=== PATIENT | female | born 1955 | race Caucasian/White ===

== ENCOUNTER → 2024-09-01 11:23 | Outpatient (REF) | payer MEDICARE, OTHER, SELFPAY | LOC: RAD 11:23 | PROVIDERS: ATTENDING PHYSICIAN Family Medicine | DX: M81.0 Age-related osteoporosis without current pathological fracture (principal) | CPT/HCPCS: 77080 ==

== ENCOUNTER 2024-10-06 06:15 | Day surgery (SDC) | payer MEDICARE, OTHER, SELFPAY | END 2024-10-06 11:07 | disposition home or self-care (01) | LOC: GI 06:15 | PROVIDERS: ATTENDING PHYSICIAN Internal Medicine Gastroenterology; FAMILY PHYSICIAN Family Medicine | DX: Z12.11 Encounter for screening for malignant neoplasm of colon (principal); K63.89 Other specified diseases of intestine; K57.30 Diverticulosis of large intestine without perforation or abscess without bleeding; R12 Heartburn; K44.9 Diaphragmatic hernia without obstruction or gangrene; Q39.9 Congenital malformation of esophagus, unspecified; K31.7 Polyp of stomach and duodenum; K21.00 Gastro-esophageal reflux disease with esophagitis, without bleeding | CPT/HCPCS: 43239; G0121; 88305 ==

== ENCOUNTER → 2025-02-20 13:49 | Outpatient (REF) | payer MEDICARE, OTHER, SELFPAY | LOC: RCS 13:49 | PROVIDERS: ATTENDING PHYSICIAN Family Medicine | DX: R60.9 Edema, unspecified (principal) | CPT/HCPCS: 93306 ==

== ENCOUNTER → 2025-02-27 14:50 | Outpatient (REF) | payer MEDICARE, OTHER, SELFPAY | LOC: RAD 14:50 | PROVIDERS: ATTENDING PHYSICIAN Family Medicine | DX: R60.9 Edema, unspecified (principal) | CPT/HCPCS: 76604 ==

== ENCOUNTER → 2025-03-26 07:10 | Outpatient (REF) | payer MEDICARE, OTHER, SELFPAY | LOC: HWRCS 07:10 | PROVIDERS: ATTENDING PHYSICIAN Internal Medicine Cardiovascular Disease; FAMILY PHYSICIAN Family Medicine | DX: I10 Essential (primary) hypertension (principal); R06.09 Other forms of dyspnea | CPT/HCPCS: 78452; 93017; A9500; J2785 ==

== ENCOUNTER 2025-05-12 15:51 | Emergency (ER) | payer MEDICARE, OTHER, SELFPAY ==
[2025-05-12 15:53] VITALS: BP 193/100
[2025-05-12 16:09] VITALS: BP 182/91
--- NOTE | 2025-05-12 16:27 | ED.GENMED ---
History of Present Illness
General
Chief Complaint: Blood Pressure Problem
Time Seen by Provider: 05/12/25 16:26
History of Present Illness
History of Present Illness:
FOCUSED PAST MEDICAL HISTORY
- MS, high blood pressure
REVIEW OF OLD RECORDS
- The patient had a screening colonoscopy in 2024 and had an endoscopy in 2021
Note:
CHIEF COMPLAINT(S)
Uncontrolled hypertension with fluctuating blood pressure readings.
HISTORY OF PRESENT ILLNESS
The patient is a 69-year-old female with known hypertension, presenting with complaints of fluctuating blood pressure. The patient reports onset in January when she experienced swollen ankles and dyspnea on exertion, specifically when climbing stairs.
An echocardiogram and a chest ultrasound conducted by her primary care physician were reported as normal. In February, the patient saw a electric utility lineworker who attributed her ankle swelling to amlodipine and adjusted her medication regimen. Since the
medication change, the patient has experienced episodes of elevated blood pressure, with one notable episode of 193 mmHg, accompanied by dizziness. Recently, her blood pressure peaked at 220 mmHg during a follow-up visit with her electric utility lineworker,
although it later normalized without intervention.
The patient has a history of multiple blood pressure medications adjustments, initially using 6.25 mg of carvedilol twice daily, which was later increased to 12.5 mg. Other medications trialed include Valsartan and amlodipine. The patient did not
respond well to Valsartan when combined with a diuretic, experiencing hypotensive episodes. The current regimen includes carvedilol 12.5 mg and recently reintroduced amlodipine 2.5 mg, which has resulted in variable blood pressure readings ranging
from 152/74 mmHg to 180/87 mmHg. The patient reports feeling 'fine' with the current medication and denies chest pain but occasionally experiences lightheadedness and headaches, which she describes as similar to her multiple sclerosis-related
headaches.
PAST MEDICAL AND SURIGICAL HISTORY
Significant for hypertension and mild multiple sclerosis.
CHRONIC MEDICAL CONDITIONS SIGNIFICANTLY AFFECTING CARE
- Hypertension
- Mild Multiple Sclerosis
MEDICATIONS
- Carvedilol 12.5 mg twice daily
- Amlodipine 2.5 mg started last night
REVIEW OF SYSTEMS
- Cardiovascular: Reports fluctuating blood pressure; denies chest pain.
- Respiratory: Reports dyspnea on exertion when climbing stairs.
- Neurological: Reports occasional headaches similar in nature to multiple sclerosis-related headaches.
- General: Reports feeling fine currently but has experienced episodes of dizziness.
PHYSICAL EXAM
General: Alert, no acute distress. Systolic blood pressures around 190 on 2 readings in the ER. Heart rate is 67.
Skin: Warm, dry.
Head: Normocephalic, atraumatic.
Neck: Supple, trachea midline.
Eye Ears, nose, mouth and throat: Oral mucosa moist.
Cardiovascular: Normal peripheral perfusion, no edema. Normal rate.
Respiratory: Respirations are non-labored.
Gastrointestinal: Abdomen nondistended
Back: Normal range of motion, normal alignment.
Musculoskeletal: Normal range of motion, normal strength.
Neurological: Alert and oriented to person, place, time, and situation, no focal neurological deficit observed.
Psychiatric: Cooperative, appropriate mood & affect.
PLAN
- Resume Valsartan 80 mg as previously discussed with the patients electric utility lineworker, holding off on the use of amlodipine due to prior swelling issues.
- Patient advised to monitor blood pressure at home, particularly if readings exceed 180/90 mmHg.
- Recommend follow-up call to Dr. Jacinto to discuss ongoing management and suitability of recommencing Valsartan.
- Reassess in the ER if significant symptoms develop or if instructed by her electric utility lineworker.
DIFFERENTIAL DIAGNOSIS
The Differential Diagnosis includes, in no particular order and is not limited to:
- Primary hypertension
- Secondary hypertension due to renal artery stenosis
- Hypertensive heart disease
- Autonomic dysfunction related to multiple sclerosis
- Medication-induced blood pressure fluctuations
- Pheochromocytoma
- Hyperthyroidism
- Adrenal gland disorders
- Congestive heart failure
- Aortic coarctation
EKG
- Sinus 71, normal axis, no acute ST abnormality
LABS
- I reviewed recent labs from [place] which shows normal renal function
UPDATE
-SUMMARY OF ENCOUNTER
The patient, a 69-year-old female with a history of hypertension and mild multiple sclerosis, was seen in the emergency department primarily for uncontrolled hypertension. She reports experiencing fluctuating blood pressure readings with a peak
reading during her last electric utility lineworker visit. The patient has a history of medication adjustments for managing hypertension, including the use of carvedilol and amlodipine, with recent issues of dizziness and swelling attributed to previous amlodipine
use. A decision was made to resume Valsartan at 80 mg as previously discussed with her electric utility lineworker, while avoiding the concurrent use of diuretics due to previous adverse effects.
DISPOSITION
Discharge
ASSESSMENT
Uncontrolled hypertension with fluctuating readings likely due to previous medication regimen and inconsistent management.
PLAN
- Begin Valsartan 80 mg without concurrent diuretic use.
- Continue monitoring blood pressure at home.
- Follow up with primary care physician or electric utility lineworker to assess response to medication adjustment and ensure stable blood pressure management.
- Reassess in the emergency department if significant symptoms develop or as advised by her electric utility lineworker.
MEDICATION RECONCILIATION
- Resume Valsartan 80 mg as per previous cardiologists input.
MEDICAL DECISION MAKING
- Number and Complexity of Problems Addressed: Chronic conditions affecting care include hypertension and mild multiple sclerosis.
- Data:
- Category 1: Reviewed recent non-emergency department records, which include past medication adjustments and symptoms referenced.
- Category 3: Discussed management with the patients family concerning medication adjustments and potential side effects of previously trialed medications.
- Risk: Prescription drug management was conducted in adjusting and continuing Valsartan to minimize blood pressure fluctuations and manage symptoms. Consideration of admission/observation was deemed unnecessary as the patient was stable for
outpatient management after detailed evaluation, with an understanding on follow-up and self-monitoring.
DIAGNOSIS
- Hypertension, unspecified (I10)
- History of medication-induced side effects (secondary diagnosis due to previous amlodipine use)
Phy Exam
Physical Exam
Physical Exam:
See HPI
Course
Orders/Labs/Results
Orders:
Orders
05/12/25 15:56
EKG [Electrocardiogram (*1)] Urgent
Reason for Study: Hypertension, Benign
EKG- Treatment ONCE
Vital Signs
Initial and Last Documented VS:
Initial Vital Signs
Temp Pulse Resp BP Pulse Ox
36.7 C 91 17 193/100 97
05/12/25 15:53 05/12/25 15:53 05/12/25 15:53 05/12/25 15:53 05/12/25 15:53
Last Documented Vital Signs
Temp Pulse Resp BP Pulse Ox
36.7 C 91 17 193/100 97
05/12/25 15:53 05/12/25 15:53 05/12/25 15:53 05/12/25 15:53 05/12/25 16:27
*Pulse Oximetry
SaO2: 97
Oxygen Mode of Delivery: Room air
Patient hypoxic: no
*Critical Care Note
Total Time (30-74mins, 75-104mins- exclusive of procedures): Not Applicable
ED Attending Note
-
Portions of this chart may have been created with voice recognition software.� Occasional wrong word or��sound alike� substitutions may have occurred due to the inherent limitations of voice recognition software.
Discharge Plan
Departure
Patient Disposition: Home (Routine Discharge)
Date of Disposition: 05/12/25
Time of Disposition: 16:59
Patient with high blood pressure during this ER visit?: Yes
Discharge Problem:
Poor high blood pressure control
Instructions: High Blood Pressure (DC), BLOOD PRESSURE
Referrals:
Benny Love MD [Family Provider, Family Practice]
Jeison Jacinto DO [Affiliate, Cardiology]
Activity Restrictions/Additional Instructions:
I recommend resuming the valsartan 80 mg. I recommend taking the valsartan 80 mg instead of the valsartan 160 mg/hydrochlorothiazide 25 mg. I recommend that you call Dr. Jacinto to see if he wants you to continue the amlodipine at a low dose.
Return here if worse or other concerns.
Interventions
Interventions:
*Risk Screen - Suicide Last Done: 05/12/25 15:56
*General Assessment Last Done: 05/12/25 15:56
*Neglect/Abuse Screening Last Done: 05/12/25 15:56
*ED COVID-19 Vaccine History Last Done: 05/12/25 15:56
*ED Influenza Vaccine History Last Done: 05/12/25 15:56
Discharge Date and Time
Print Language: DIVEHI
[2025-05-12 16:40] VITALS: BP 191/91
[2025-05-12 17:00] VITALS: BP 188/87
== END 2025-05-12 17:45 | disposition home or self-care (01) ==
LOC: EMR 15:51
PROVIDERS: EMERGENCY PHYSICIAN Emergency Medicine; FAMILY PHYSICIAN Family Medicine
DX: I10 Essential (primary) hypertension (principal); G35.D Multiple sclerosis, unspecified
CPT/HCPCS: 93005; 99283